=== PATIENT | female | born 1970 | race Caucasian/White ===

== ENCOUNTER 2022-08-05 06:10 | Day surgery (SDC) | payer BC ==
[~2022-08-05] VITALS: Ht 182.9 cm; Wt 93.7 kg
[~2022-08-05 06:10] MED LIST: ESOM20 PO
[2022-08-05] MEDS ORDERED: MELO7.5 PO (06:41)
--- NOTE | 2022-08-05 07:31 | NUR ---
08/05/22 0731 Nataly Lantigua CALL LIGHT WITHIN REACH. DR. MENENDEZ AND DR. BALL NOTIFIED OF HIGH BLOOD PRESSURE READINGS. NO FURTHER QUESTIONS AND CONCERNS AT THIS TIME.
--- NOTE | 2022-08-05 08:08 | NUR ---
08/05/22 0807 Yolanda Sanches 1MG EPI ADDED TO FIRST 3L BAG OF LR USED FOR JOINT IRRIGATION. 0.1ML OF EPI 1MG/ML ADDED TO 20ML ROPIVICAINE 0.5% TO CREATE A LOCAL SOLUTION OF ROPIVICAINE 0.5% WITH EPI 1:200,000. 10MLS USED.
[2022-08-05 09:11] VITALS: BP 138/88
--- NOTE | 2022-08-05 10:44 | NUR ---
08/05/22 Magdalene4 Clair Jackson LATE ENTRY: PATIENT GIVEN PO PAIN MED PER ORDERS, EXPRESSED READINESS TO GO HOME.
== END 2022-08-05 10:10 | disposition home or self-care (01) ==
LOC: ORSCSDS 06:10
PROVIDERS: Orthopaedic Surgery
PROC: 0SBD4ZZ Excision of Left Knee Joint, Percutaneous Endoscopic Approach (ICD-10-PCS; principal; 2022-08-05 07:30)
DX: S83.272A Complex tear of lateral meniscus, current injury, left knee, initial encounter (principal); S83.242A Other tear of medial meniscus, current injury, left knee, initial encounter; M94.262 Chondromalacia, left knee; E78.5 Hyperlipidemia, unspecified; Z87.891 Personal history of nicotine dependence
CPT/HCPCS: A9270; J0171; J0690; J1100; J1885; J2250; J2370; J2405; J2704; J2795; J3010; J7120